=== PATIENT | female | born 1960 | race Caucasian/White ===

== ENCOUNTER 2019-07-26 16:31 | Emergency (ER) | payer BC, SELFPAY ==
[2019-07-26] MEDS ORDERED: Cyclobenzaprine 10 MG TAB ONE (16:51)
[2019-07-26] MEDS ORDERED: Ibuprofen 800 MG TAB ONE (16:51)
== END 2019-07-26 17:02 | disposition home or self-care (01) ==
LOC: BURERS 16:31
DX: S01.81XA Laceration without foreign body of other part of head, initial encounter (principal); F41.9 Anxiety disorder, unspecified; F32.9 Major depressive disorder, single episode, unspecified; Z79.899 Other long term (current) drug therapy; W01.0XXA Fall on same level from slipping, tripping and stumbling without subsequent striking against object, initial encounter
CPT/HCPCS: 12011

== ENCOUNTER 2019-07-30 15:10 | Outpatient (CLI) | payer SELFPAY ==
--- NOTE | 2019-07-30 15:46 | CT ---
CT OF THE BRAIN 07/30/19 The ventricles are normal in size with no shift. No intracranial bleeding, sign of strokes, mass, or edema was present. There is good rivas-white distinction. The posterior fossa was unremarkable. The m astoid air cells and paranasal sinuses are clear. The internal auditory canals are symmetrical. There may be some fluid in each nasal lacrimal duct. IMPRESSION: No acute intracranial findings. POS: HOME
== END 2019-07-30 15:11 | disposition home or self-care (01) ==
LOC: BURCT 15:10
PROVIDERS: ATTEND Family Medicine
DX: S06.0X1A Concussion with loss of consciousness of 30 minutes or less, initial encounter (principal); R42 Dizziness and giddiness
CPT/HCPCS: 70450